=== PATIENT | female | born 1960 | race Caucasian/White ===

== ENCOUNTER → 2017-03-21 | Outpatient (CLI) | payer BC ==
[~2017-03-21] MED LIST: NXM/40 PO
--- NOTE | 2017-03-22 13:52 | MAMMOGRAPHY REPORT ---
BILATERAL DIGITAL SCREENING MAMMOGRAM TOMOSYNTHESIS WITH CAD: 03/21/2017 CLINICAL HISTORY: Routine screening. Patient has no complaints. TECHNIQUE: Breast tomosynthesis in addition to standard 2D mammography was performed. Current study was also evaluated with a Computer Aided Detection (CAD) system. COMPARISON: Comparison is made to exams dated: 02/24/2016 mammogram, 01/22/2015 mammogram, 10/02/2013 param mogram, 03/11/2013 mammogram, 03/03/2013 mammogram, and 08/09/2011 mammogram - [facility]. BREAST COMPOSITION: The tissue of both breasts is heterogeneously dense, which may obscure small mas ses. FINDINGS: There is a possible area of architectural distortion in the superior posterior left breast , best seen on MLO tomosynthesis slice 20-21/68, for which additional spot compression tomosynthesis views and possible ultrasound are recommended. No other suspicious mass, architectural distortion or cluster of microcalcifications is seen bilatera lly. IMPRESSION: ACR BI-RADS CATEGORY 0: INCOMPLETE EVALUATION: NEED ADDITIONAL IMAGING EVALUATION The possible area of architectural distortion in the superior, posterior left breast needs additional evaluation. The patient will be called to schedule an appointment. Approximately 10% of breast cancers are not detected with mammography. A negative mammographic report should not delay biopsy if a clinically suggestive mass is present. Ngoc Gilbert M.D. ay/:03/21/2017 15:51:01 Car Wash Manager: Sherly Franco RT(R)(M)(BD), [facility] letter sent: Addl Imaging 0 BI-RADS Code: ACR BI-RADS Category 0: Incomplete Evaluation: Need Additional Imaging Evaluation
== END | disposition home or self-care (01) ==
LOC: C.MAMM 15:22
PROVIDERS: ATTEND Family Medicine
DX: Z12.31 Encounter for screening mammogram for malignant neoplasm of breast (principal)

== ENCOUNTER → 2017-03-30 | Outpatient (CLI) | payer BC ==
--- NOTE | 2017-03-30 14:13 | MAMMOGRAPHY REPORT ---
UNILATERAL LEFT DIGITAL DIAGNOSTIC MAMMOGRAM TOMOSYNTHESIS AND TARGETED LEFT ULTRASOUND: 03/30/2017 CLINICAL HISTORY: Callback from screening mammogram for possible left breast architectural distortion . TECHNIQUE: Breast tomosynthesis in addition to standard 2D mammography was performed. Spot compress ion left MLO and full left X CCL 2-D and tomosynthesis images were obtained. COMPARISON: Comparison is made to exams dated: 03/21/2017 mammogram, 02/24/2016 mammogram, 10/02/2013 ma mmogram, 03/11/2013 mammogram, and 03/11/2013 ultrasound - [facility]. BREAST COMPOSITION: The tissue of the left breast is heterogeneously dense, which may obscure small masses. FINDINGS: The previously described area of questionable architectural distortion within the left supe rior posterior breast on the MLO view does not persist on the additional spot compression views. No suspicious mass, architectural distortion, or other suspicious finding is seen in this region on the additional images. The area localizes to the lateral breast based on the tomosynthesis localizer bar . Targeted ultrasound was performed of the area of the questionable architectural distortion in the lef t upper outer quadrant. No suspicious masses or other suspicious abnormalities are seen in this bernardo on. Incidentally noted are a few scattered cysts, including a small cluster of anechoic cysts measur ing 5 x 3 mm and the left 3:00 breast, 2 cm from the nipple. IMPRESSION: ACR BI-RADS CATEGORY 2: BENIGN, TARGETED ULTRASOUND ACR BI-RADS CATEGORY 2: BENIGN The questionable architectural distortion in the left superior breast does not persist on the additio nal views, without corresponding suspicious sonographic abnormality evident. Findings are benign and felt to represent normal overlapping fibroglandular tissue. There is no mammographic or targeted so nographic evidence of malignancy. A 1 year screening mammogram is recommended. The patient has been verbally notified of the results. Approximately 10% of breast cancers are not detected with mammography. A negative mammographic report should not delay biopsy if a clinically suggestive mass is present. Nayely Hannah M.D. /:03/30/2017 11:04:14 Spa Host: Loly KAM)(Viry), [facility] letter sent: Normal 1/2 BI-RADS Code: ACR BI-RADS Category 2: Benign Ultrasound BI-RADS: ACR BI-RADS Category 2: Benign
== END | disposition home or self-care (01) ==
LOC: C.MAMM 10:36
PROVIDERS: ATTEND Family Medicine
DX: N64.89 Other specified disorders of breast (principal)